=== PATIENT | male | born 1985 | race Caucasian/White ===

== ENCOUNTER 2016-08-01 13:33 | Emergency (ER) | payer SELFPAY ==
[~2016-08-01] VITALS: Ht 182.9 cm; Wt 86.6 kg
[2016-08-01 13:51] VITALS: BP 127/74
[2016-08-01] MEDS ORDERED: ULTRAM50 MG PO (16:33)
[2016-08-01] MEDS ORDERED: MEDROL DOSEPAK4 MG PO (16:33)
== END 2016-08-01 16:51 | disposition home or self-care (01) ==
LOC: EME 13:33
DX: M16.11 Unilateral primary osteoarthritis, right hip (principal); M16.12 Unilateral primary osteoarthritis, left hip
CPT/HCPCS: 73502; 99281; 99283; J7512